=== PATIENT | female | born 1970 | race Caucasian/White ===

== ENCOUNTER 2016-10-27 11:32 | Emergency (ER) | payer OTHER ==
[~2016-10-27] VITALS: Ht 175.3 cm; Wt 77.0 kg
[~2016-10-27 11:32] MED LIST: ACET325T33 PO; CIPR500T4 PO; DIAZ-90 PO; FAMO20TA18 PO; HYDR-3498 PO; METR500T PO; OMEP20CA16 PO; PERCOCET PO; PRED20TA PO
[2016-10-27 11:48] VITALS: Ht 175.3 cm; Wt 77.0 kg
[2016-10-27] MEDS ORDERED: GUAI-637 PO (14:46)
[2016-10-27] MEDS ORDERED: IBUP-1542 PO (14:46)
[2016-10-27] MEDS ORDERED: CETI10CA PO (14:48)
[2016-10-27 15:06] VITALS: BP 126/78; PULSE 76; RESP 17; TEMP 98.1
--- NOTE | 2016-10-29 23:05 | ERD ---
ER Documentation Chief Complaint Date/Time DATE: 10/29/16 TIME: 22:45 Chief Complaint RIGHT EAR PAIN, HEADACHE X3 DAYS HPI Patient is a 46 year old female who presents to the emergency department with right ear pain and headache x3 days. Patient states that her ear pain is intermittent in nature. Patient describes the pain to be throbbing and "full." Patient denies drainage. Patient reports tactile fevers. Patient reports a dry cough. Patient report clear rhinorrhea and a sore throat. Patient denies any drooling, trismus and hyperextension of the neck. Patient denies any neck pain or stiffness. Patient states that she has a mild headache and generalized body aches. Patient denies any weight loss, nausea, vomiting, diarrhea, or changes in appetite. Patient recently returned from a trip from [facility]. Patient also complaining of discolorations to her legs. Patient states that they were initially red circular bumps only on her legs and now have left dark brown discolorations. ROS All systems reviewed and are negative except as per history of present illness. Medications Home Meds Active Scripts Cetirizine Hcl* (Zyrtec*) 10 Mg Capsule, 10 MG PO DAILY, #20 TAB.CHEW Prov:MAVIS MONTOYA PA-C 10/27/16 Ibuprofen* (Motrin*) 600 Mg Tab, 600 MG PO Q6, #30 TAB Prov:MAVIS MONTOYA PA-C 10/27/16 Guaifenesin* (Robitussin*) 100 Mg/5 Ml Syrup, 100 MG PO Q4H Y for COUGH, #1 BOTTLE Prov:MAVIS MONTOYA PA-C 10/27/16 Diazepam* (Valium*) 5 Mg Tablet, 5 MG PO Q8 for MUSCLE SPASMS, #10 TAB Prov:ANNA JONES PA-C 05/01/16 Omeprazole* (Omeprazole*) 20 Mg Capsule.dr, 20 MG PO DAILY, #10 Prov:ANNA JONES PA-C 05/01/16 Acetaminophen* (Tylenol*) 325 Mg Tablet, 2 TAB PO Q6 Y for PAIN AND OR ELEVATED TEMP, #20 TAB Prov:ANNA JONES PA-C 05/01/16 Prednisone* (Prednisone*) 20 Mg Tab, 40 MG PO DAILY for 5 Days, TAB Prov:MARCI GORDONKayleigh CARO 12/07/15 Hydrocodone Bit-Acetaminophen* ([place]*) 5-325 Mg Tab, 1 TAB PO Q6 Y for PAIN, # 10 TAB Prov:GODWINHEMANT VANIA 11/30/15 Metronidazole* (Flagyl*) 500 Mg Tablet, 500 MG PO TID for 7 Days, TAB Prov:GODWINHEMANT CARO 11/30/15 Ciprofloxacin Hcl* (Ciprofloxacin Hcl*) 500 Mg Tablet, 500 MG PO BID for 7 Days , TAB Prov:GODWINHEMANT VANIA 11/30/15 Ciprofloxacin Hcl* (Ciprofloxacin Hcl*) 500 Mg Tablet, 500 MG PO BID, #10 TAB Prov:DOUGLAS GALARZA MD 03/16/15 Oxycodone Hcl/Acetaminophen (Percocet) 1 Tab Tab, 2 TAB PO Q4H Y for PAIN 4-6, # 50 TAB Prov:JEANNETTE MEDEIROS 11/25/14 Reported Medications Famotidine* (Famotidine*) 20 Mg Tablet, 20 MG PO DAILY, TAB 11/21/14 Allergies Allergies: Coded Allergies: No Known Drug Allergies (Verified Allergy, Unknown, 03/12/15) PMhx/Soc Medical and Surgical Hx: pt denies Medical Hx History of Surgery: Yes (CHOLECYSTECTOMY, LIVER SURGERY) Anesthesia Reaction: No Hx Neurological Disorder: No Hx Respiratory Disorders: No Hx Cardiac Disorders: No Hx Psychiatric Problems: No Hx Miscellaneous Medical Probl: Yes (UTI) Hx Alcohol Use: No Hx Substance Use: No Hx Tobacco Use: Yes (CIGS OCCASSIONALLY) Smoking Status: Light tobacco smoker Physical Exam Vitals Vital Signs Date Time Temp Pulse Resp B/P Pulse Ox O2 Delivery O2 Flow Rate FiO2 10/27/16 15:06 98.1 76 17 126/78 98 Room Air 10/27/16 11:48 98.1 80 17 99/67 98 Physical Exam GENERAL: Well-developed, well-nourished female. Appears in no acute distress. HEAD: Normocephalic, atraumatic. No deformities or ecchymosis. EYE: Pupils equal, round, and reactive to light. EOMs intact. No conjunctival erythema. No scleral icterus. No eye discharge. ENT: External ear without any masses or tenderness. Auditory canals clear bilaterally. TM visualized bilaterally, non-erythematous, non-bulging. Nasal mucosa pink with no discharge. Oropharynx is pink without any tonsillar erythema or exudates. No uvula deviation. No kissing tonsils. NECK: Supple. Normal ROM of the neck. No neck stiffness. No meningismus. LUNG: Clear to auscultation bilaterally. No rhonchi, wheezing, rales or coarse breath sounds. HEART: Regular rate and rhythm. No murmurs, rubs or gallops. ABDOMEN: No scars, ecchymosis or rashes noted. Soft, nontender, and nondistended. Positive bowel sounds in all four quadrants.~No rebound tenderness , no guarding. No CVA tenderness. BACK: No midline tenderness. EXTREMITIES: Equal pulses bilaterally. No peripheral clubbing, cyanosis or edema. No unilateral leg swelling. NEUROLOGIC: Alert and oriented to person, place and time. Moving all four extremities. 5/5 strength in all extremities. Normal speech. Steady gait. (-) Brudzinski sign. (-) Kernigs sign. SKIN: Normal color. Warm and dry. Macular, circular, light brown discolorations noted to patient's lower legs only. Dime to quarter sized, varies in size. Non- tender to palpation. No diffuse erythematous, macular or papular lesions/ rashes noted on patient's body. No desquamation of foot soles or palms. Procedures/MDM MEDICAL DECISION MAKING: This is a 46 year old female who presents with numerous symptoms including ear pain, throat pain, headaches, generalized body aches and intermittent fevers after returning from [facility] 3 days ago. Vital signs were reviewed. Patient was afebrile. Patient was not hypoxic. ENT exam was normal. Lung exam was normal. Abdominal exam was normal. Skin exam revealed macular, circular discolorations randomly spaced on patient's lower legs only. Lesions are dime to quarter sized. No diffuse erythematous lesions/ rashes noted on the patient's entire body. Given these findings, the patients presentation is most consistent with influenza and viral URI. I have a much lower clinical concern for bacterial infections including pneumonia, meningitis, sinusitis, otitis externa, acute otitis media, strep pharyngitis, epiglottitis or peritonsillar abscess. Patient' s rash appears to most resemble resolving mosquito/insect bites. Low suspicion for allergic dermatitis, necrotizing fasciitis, Hosea-Paulino syndrome, toxic epidural necrolysis, abscess, cellulitis, herpes zoster. Low suspicion for Typhoid, Dengue Fever, Yellow fever, Chikungunya. PRESCRIPTIONS: Zyrtec, Robitussin, Ibuprofen DISCHARGE: At this time, patient is stable for discharge and outpatient management. Supportive therapies such as OTC throat lozenges, salt water gurgles, popsicles and jello discussed. I have instructed the patient to follow-up with his/her primary care physician in 1-2 days. If patient's rash persists, patient may need to see a corporate sales representative. I have instructed the patient to promptly return to the ER for any new or worsening symptoms including increased pain, swelling, fever, nausea, vomiting, weakness or difficulty breathing. The patient and/or family expressed understanding of and agreement with this plan. All questions were answered. Home care instructions were provided Departure Diagnosis: Primary Impression: Influenza-like symptoms Condition: Stable Patient Instructions: Influenza (Adult) [facility] YOU HAVE RECEIVED A MEDICAL SCREENING EXAM AND THE RESULTS INDICATE THAT YOU DO NOT HAVE A CONDITION THAT REQUIRES URGENT TREATMENT IN THE EMERGENCY DEPARTMENT. FURTHER EVALUATION AND TREATMENT OF YOUR CONDITION CAN WAIT UNTIL YOU ARE SEEN IN YOUR DOCTORS OFFICE WITHIN THE NEXT 1-2 DAYS. IT IS YOUR RESPONSIBILITY TO MAKE AN APPOINTMENT FOR FOLOW-UP CARE. IF YOU HAVE A PRIMARY DOCTOR --you should call your primary doctor and schedule an appointment IF YOU DO NOT HAVE A PRIMARY DOCTOR YOU CAN CALL OUR PHYSICIAN REFERRAL HOTLINE AT IF YOU CAN NOT AFFORD TO SEE A PHYSICIAN YOU CAN CHOSE FROM THE FOLLOWING [facility] [address] [facility]. [facility] [address] [facility] [place] [address] [facility] [address] [facility] [address] [facility]. [facility]. [address] [facility]. [facility] YOU HAVE RECEIVED A MEDICAL SCREENING EXAM AND THE RESULTS INDICATE THAT YOU DO NOT HAVE A CONDITION THAT REQUIRES URGENT TREATMENT IN THE EMERGENCY DEPARTMENT. FURTHER EVALUATION AND TREATMENT OF YOUR CONDITION CAN WAIT UNTIL YOU ARE SEEN IN YOUR DOCTORS OFFICE WITHIN THE NEXT 1-2 DAYS. IT IS YOUR RESPONSIBILITY TO MAKE AN APPOINTMENT FOR FOLOW-UP CARE. IF YOU HAVE A PRIMARY DOCTOR --you should call your primary doctor and schedule and appointment IF YOU DO NOT HAVE A PRIMARY DOCTOR YOU CAN CALL OUR PHYSICIAN REFERRAL HOTLINE AT . IF YOU CAN NOT AFFORD TO SEE A PHYSICIAN YOU CAN CHOSE FROM THE FOLLOWING [facility] INSTITUTIONS: [facility] [address] [place] [address] [facility] [address] [place] [address] [facility] + [facility] [address] [place] [address] Additional Instructions: At this time, patient's presentation is most consistent with viral URI versus influenza. Symptomatic treatment discussed. Take medications as needed. OTC throat lozenges, popsicles, Jell-O and humidifier use advised. Skin lesions continue, patient may need to see a corporate sales representative for further management. Call your primary care doctor TOMORROW for an appointment during the next 1-2 days.See the doctor sooner or return here if your condition worsens before your appointment time. MAVIS MONTOYA PA-C Oct 29, 2016 23:00
== END 2016-10-27 15:06 | disposition home or self-care (01) ==
LOC: FTE 11:32
DX: H92.01 Otalgia, right ear (principal); R51 Headache; F17.210 Nicotine dependence, cigarettes, uncomplicated
CPT/HCPCS: 99283

== ENCOUNTER 2017-06-23 12:10 | Emergency (ER) | payer OTHER ==
[~2017-06-23] VITALS: Ht 170.2 cm; Wt 76.5 kg
[~2017-06-23 12:10] MED LIST changes: +CETI10CA PO; +GUAI-637 PO; +IBUP-1542 PO
[2017-06-23 12:47] VITALS: Ht 170.2 cm; Wt 76.5 kg
[2017-06-23] MEDS ORDERED: HYDROCODONE/APAP (5/325) TAB PO ONE (15:30)
[2017-06-23 15:46] LABS: BASOPHIL # 0.1 10^3/ul (0.0-0.1); BASOPHILS % 1.1 % (0.0-2.0); EOSINOPHILS # 0.6 10^3/ul (0.0-0.5); EOSINOPHILS % 7.5 % (0.0-7.0); HEMATOCRIT 39.3 % (37.0-47.0); HEMOGLOBIN 13.2 g/dl (12.0-16.0); LYMPHOCYTES # 2.1 10^3/ul (0.8-2.9); MEAN CORPUSCULAR HEMOGLOBIN 29.4 pg (29.0-33.0); MEAN CORPUSCULAR HGB CONC 33.6 g/dl (32.0-37.0); MEAN CORPUSCULAR VOLUME 87.5 fl (82.0-101.0); MEAN PLATELET VOLUME 9.4 fl (7.4-10.4); MONOCYTE # 0.5 10^3/ul (0.3-0.9); NEUTROPHIL # 4.3 10^3/ul (1.6-7.5); NEUTROPHILS % 56.3 % (39.0-77.0); PLATELET COUNT 266 10^3/UL (140-415); RED BLOOD COUNT 4.49 10^6/ul (4.20-5.40); RED CELL DISTRIBUTION WIDTH 14.7 % (11.5-14.5); WHITE BLOOD COUNT 7.6 10^3/ul (4.8-10.8)
[2017-06-23 16:06] LABS: ALBUMIN 4.7 g/dl (3.3-4.9); ALBUMIN/GLOBULIN RATIO 1.56; BILIRUBIN,INDIRECT 0.1 mg/dl (0-1.1); BILIRUBIN,TOTAL 0.1 mg/dl (0.2-1.3); CREATININE 0.64 mg/dl (0.44-1.00); POTASSIUM 4.2 mmol/L (3.5-5.1); TOTAL PROTEIN 7.7 g/dl (6.1-8.1)
[2017-06-23 16:06] LABS: ADD UMIC NO; UR ASCORBIC ACID NEGATIVE (NEGATIVE); UR BILIRUBIN (Dip) NEGATIVE (NEGATIVE); UR BLOOD (Dip) NEGATIVE (NEGATIVE); UR CLARITY CLEAR (CLEAR); UR COLOR YELLOW (YELLOW); UR GLUCOSE (Dip) NEGATIVE (NEGATIVE); UR KETONES (Dip) NEGATIVE (NEGATIVE); UR LEUKOCYTE ESTERASE (Dip) NEGATIVE Leu/ul (NEGATIVE); UR NITRITE (Dip) NEGATIVE (NEGATIVE); UR SPECIFIC GRAVITY (Dip) 1.015 (1.003-1.030); UR TOTAL PROTEIN (Dip) NEGATIVE (NEGATIVE); UR UROBILINOGEN (Dip) NEGATIVE (NEGATIVE)
--- NOTE | 2017-06-23 16:32 | RADRPT ---
PROCEDURE: CT abdomen and pelvis without contrast. CLINICAL INDICATION: Left lower quadrant pain TECHNIQUE: CT scan of the abdomen and pelvis without contrast was performed . The patient was sca nned without intravenous contrast. 3-D coronal reformatted images were obtained from the axial sour ce images. CTDI 14.11 mGy DLP = 75 9.28 mGy-cm One or more of the following dose reduction techniques were used: Automated exposure control Adjustment of the mA and / or kV according to patient size Use of iterative reconstruction technique. COMPARISON: CT of the abdomen and pelvis dated November 29, 2015 FINDINGS: CT abdomen/pelvis: There is mild bibasilar atelectasis otherwise the lung bases are clear. There is a 7 mm nonspecific hypodense lesion in the right lobe of the liver, too small to characteri ze. The patient is status post cholecystectomy. There is no intra or extra panic biliary ductal dila tation. The spleen, adrenal glands, and pancreas appear normal. The kidneys are normal without renal or ureteral calculus. There is no hydronephrosis. There are very faint vascular calcifications. There is no lymphadenopathy. The large and small bowel is normal in course and caliber, without evidence of obstruction. The appe ndix appears normal. There is diverticulosis without evidence of acute diverticulitis. There is stoo l throughout the colon. There are bilateral essure devices present. The uterus and adnexa are otherwise grossly unremarkable . There is no free fluid. There is no acute osseous abnormality. There is no suspicious osseous lesion. There is mild sclerosi s along the inferior aspect of the sacroiliac joints bilaterally, unchanged from prior, possibly deg enerative or reflecting chronic inflammatory changes. IMPRESSION: 1. Diverticulosis without evidence of acute diverticulitis. 2. Normal appendix. 3. No renal or ureteral calculi. No hydronephrosis. 4. Previous cholecystectomy. RPTAT: UU .Hosea Orozco MD, Date Time Electronically viewed and signed by .Hosea Orozco MD, MD on 06/23/2017 16:32 .K/
--- NOTE | 2017-06-23 16:39 | RADRPT ---
PROCEDURE: Ultrasound pelvis. CLINICAL INDICATION: Pelvic pain. TECHNIQUE: Sonographic evaluation of the pelvis was performed using transabdominal and endovaginal views. COMPARISON: None. FINDINGS: Mildly heterogeneous uterus without discrete uterine mass or fibroid. Dominant follicle within left ovary measuring up to 1.7 cm. There are normal-appearing follicles mata ntified within the right ovary. No free fluid or fluid collection. MEASUREMENTS: Uterus: 6.3 x 4.2 x 4.7 cm. Endometrium: 0.5 cm Right ovary: 1.9 x 1.3 x 1.3 cm Left ovary: 2.3 x 1.8 x 2.1 cm IMPRESSION: Unremarkable sonographic evaluation of the pelvis. RPTAT: EE .Xander Valdez MD, MD Date Time Electronically viewed and signed by .Xander Valdez MD, on 06/23/2017 16:44 .C/
[2017-06-23] MEDS ORDERED: TRAM50TA2 PO (16:50)
--- NOTE | 2017-06-23 17:00 | ERD ---
ER Documentation Chief Complaint Chief Complaint left pelvic pain radiating to back HPI 47-year-old female presents with left-sided pelvic pain that radiates to her left lower back that started 2 days ago. She describes it as sharp, achy and diffuse, mild to moderate. She has not had any difficulty with urinating or UTI symptoms. She denies vaginal bleeding. She denies fevers or chills, vomiting or diarrhea. ROS All systems reviewed and are negative except as per history of present illness. Medications Home Meds Active Scripts Tramadol HCl (Tramadol HCl) 50 Mg Tablet, 50 MG PO Q4 Y for PAIN, #15 TAB Prov:FARHAN NOVA PA-C 06/23/17 Cetirizine Hcl* (Zyrtec*) 10 Mg Capsule, 10 MG PO DAILY, #20 TAB.CHEW Prov:MAVIS MONTOYA PA-C 10/27/16 Ibuprofen* (Motrin*) 600 Mg Tab, 600 MG PO Q6, #30 TAB Prov:MAVIS MONTOYA PA-C 10/27/16 Guaifenesin* (Robitussin*) 100 Mg/5 Ml Syrup, 100 MG PO Q4H Y for COUGH, #1 BOTTLE Prov:MAVIS MONTOYA PA-C 10/27/16 Diazepam* (Valium*) 5 Mg Tablet, 5 MG PO Q8 for MUSCLE SPASMS, #10 TAB Prov:ANNA JONES PA-C 05/01/16 Omeprazole* (Omeprazole*) 20 Mg Capsule.dr, 20 MG PO DAILY, #10 Prov:ANNA JONES PA-C 05/01/16 Acetaminophen* (Tylenol*) 325 Mg Tablet, 2 TAB PO Q6 Y for PAIN AND OR ELEVATED TEMP, #20 TAB Prov:ANNA JONES PA-C 05/01/16 Prednisone* (Prednisone*) 20 Mg Tab, 40 MG PO DAILY for 5 Days, TAB Prov:MARCI GORDON PA-C 12/07/15 Hydrocodone Bit-Acetaminophen* ([place]*) 5-325 Mg Tab, 1 TAB PO Q6 Y for PAIN, # 10 TAB Prov:HEMANT CONNELLY PA-C 11/30/15 Metronidazole* (Flagyl*) 500 Mg Tablet, 500 MG PO TID for 7 Days, TAB Prov:HEMANT CONNELLY PA-C 11/30/15 Ciprofloxacin Hcl* (Ciprofloxacin Hcl*) 500 Mg Tablet, 500 MG PO BID for 7 Days , TAB Prov:HEMANT CONNELLY PA-C 11/30/15 Ciprofloxacin Hcl* (Ciprofloxacin Hcl*) 500 Mg Tablet, 500 MG PO BID, #10 TAB Prov:DOUGLAS GALARZA MD 03/16/15 Oxycodone Hcl/Acetaminophen (Percocet) 1 Tab Tab, 2 TAB PO Q4H Y for PAIN 4-6, # 50 TAB Prov:JEANNETTE MEDEIROS 11/25/14 Reported Medications Famotidine* (Famotidine*) 20 Mg Tablet, 20 MG PO DAILY, TAB 11/21/14 Allergies Allergies: Coded Allergies: No Known Drug Allergies (Verified Allergy, Unknown, 03/12/15) PMhx/Soc History of Surgery: Yes (CHOLECYSTECTOMY, LIVER SURGERY) Anesthesia Reaction: No Hx Neurological Disorder: No Hx Respiratory Disorders: No Hx Cardiac Disorders: No Hx Psychiatric Problems: No Hx Miscellaneous Medical Probl: Yes (UTI) Hx Alcohol Use: No Hx Substance Use: No Hx Tobacco Use: Yes (CIGS OCCASSIONALLY) Smoking Status: Current some day smoker Physical Exam Vitals Vital Signs Date Time Temp Pulse Resp B/P Pulse Ox O2 Delivery O2 Flow Rate FiO2 06/23/17 12:47 98.4 7 18 113/60 99 Physical Exam General: Well-developed, well-nourished. The patient appears in no acute distress. HEENT: Head is normocephalic, atraumatic. No scleral icterus. Neck: Supple. Nontender. Lungs: Clear to auscultation. Normal air movement. Heart: Regular rate and rhythm. S1 and S2 are normal. No murmurs, gallops, or rubs. Abdomen: Soft, tender in the left lower pelvic region, there is no rebound pain , no McBurney's tenderness nondistended. Bowel sounds are normoactive. Surgical scar from previous intervention from trauma to her liver., Surgical scar from cholecystectomy. No CVA tenderness. Extremities: No clubbing or cyanosis. Normal pulses. Moving extremities x 4. No weakness. Neurologic: Alert and oriented 3. No focal deficits. Skin: Normal turgor. No rash or lesions. Result Diagram: 06/23/17 1531 06/23/17 1531 Results 24 hrs Laboratory Tests Test 06/23/17 15:31 06/23/17 15:37 White Blood Count 7.610^3/ul Red Blood Count 4.4910^6/ul Hemoglobin 13.2g/dl Hematocrit 39.3% Mean Corpuscular Volume 87.5fl Mean Corpuscular Hemoglobin 29.4pg Mean Corpuscular Hemoglobin Concent 33.6g/dl Red Cell Distribution Width 14.7% Platelet Count 44089^3/UL Mean Platelet Volume 9.4fl Neutrophils % 56.3% Lymphocytes % 28.0% Monocytes % 7.0% Eosinophils % 7.5% Basophils % 1.1% Nucleated Red Blood Cells % 0.0/100WBC Neutrophils # 4.310^3/ul Lymphocytes # 2.110^3/ul Monocytes # 0.510^3/ul Eosinophils # 0.610^3/ul Basophils # 0.110^3/ul Nucleated Red Blood Cells # 0.010^3/ul Sodium Level 142mmol/L Potassium Level 4.2mmol/L Chloride Level 106mmol/L Carbon Dioxide Level 25mmol/L Anion Gap 15 Blood Urea Nitrogen 10mg/dl Creatinine 0.64mg/dl Glucose Level 89mg/dl Calcium Level 9.0mg/dl Total Bilirubin 0.1mg/dl Direct Bilirubin 0.00mg/dl Indirect Bilirubin 0.1mg/dl Aspartate Amino Transf (AST/SGOT) 23IU/L Alanine Aminotransferase (ALT/SGPT) 30IU/L Alkaline Phosphatase 99IU/L Total Protein 7.7g/dl Albumin 4.7g/dl Globulin 3.00g/dl Albumin/Globulin Ratio 1.56 Lipase 128U/L Serum HCG, Qualitative NEGATIVE Urine Color YELLOW Urine Clarity CLEAR Urine pH 5.0 Urine Specific [place] 1.015 Urine Ketones NEGATIVEmg/dL Urine Nitrite NEGATIVEmg/dL Urine Bilirubin NEGATIVEmg/dL Urine Urobilinogen NEGATIVEmg/dL Urine Leukocyte Esterase NEGATIVELeu/ul Urine Hemoglobin NEGATIVEmg/dL Urine Glucose NEGATIVEmg/dL Urine Total Protein NEGATIVEmg/dl Current Medications Medications (Trade) Dose Ordered Sig/Nicki Route PRN Reason Start Time Stop Time Status Last Admin Dose Admin Acetaminophen/ Hydrocodone Bitart ([place] (5/325)) 1 tab ONCE ONCE PO 06/23/17 15:30 06/23/17 15:31 DC 06/23/17 15:53 DIAGNOSTIC IMAGING REPORT Patient: ETSSY SOTO : 1970 Age: 47 Sex: F MR #: [id number] DOS: 06/23/17 1522 Ordering MD: FARHAN NOVA PA-C Location: [facility] Room/Bed: PROCEDURE: CT abdomen and pelvis without contrast. CLINICAL INDICATION: Left lower quadrant pain TECHNIQUE: CT scan of the abdomen and pelvis without contrast was performed . The patient was scanned without intravenous contrast. 3-D coronal reformatted images were obtained from the axial source images. CTDI 14.11 mGy DLP = 75 9.28 mGy-cm One or more of the following dose reduction techniques were used: Automated exposure control Adjustment of the mA and / or kV according to patient size Use of iterative reconstruction technique. COMPARISON: CT of the abdomen and pelvis dated November 29, 2015 FINDINGS: CT abdomen/pelvis: There is mild bibasilar atelectasis otherwise the lung bases are clear. There is a 7 mm nonspecific hypodense lesion in the right lobe of the liver, too small to characterize. The patient is status post cholecystectomy. There is no intra or extra panic biliary ductal dilatation. The spleen, adrenal glands, and pancreas appear normal. The kidneys are normal without renal or ureteral calculus. There is no hydronephrosis. There are very faint vascular calcifications. There is no lymphadenopathy. The large and small bowel is normal in course and caliber, without evidence of obstruction. The appendix appears normal. There is diverticulosis without evidence of acute diverticulitis. There is stool throughout the colon. There are bilateral essure devices present. The uterus and adnexa are otherwise grossly unremarkable. There is no free fluid. There is no acute osseous abnormality. There is no suspicious osseous lesion. There is mild sclerosis along the inferior aspect of the sacroiliac joints bilaterally, unchanged from prior, possibly degenerative or reflecting chronic inflammatory changes. IMPRESSION: 1. Diverticulosis without evidence of acute diverticulitis. 2. Normal appendix. 3. No renal or ureteral calculi. No hydronephrosis. 4. Previous cholecystectomy. RPTAT: UU .Hosea Orozco MD, MD Date Time Electronically viewed and signed by .Hosea Orozco MD, MD on 06/23/2017 16: 32 .K/ CC: FARHAN NOVA PA-C DIAGNOSTIC IMAGING REPORT Patient: TESSY SOTO : 1970 Age: 47 Sex: F MR #: [id number] DOS: 06/23/17 1519 Ordering MD: FARHAN NOVA PA-C Location: [facility] Room/Bed: PROCEDURE: Ultrasound pelvis. CLINICAL INDICATION: Pelvic pain. TECHNIQUE: Sonographic evaluation of the pelvis was performed using transabdominal and endovaginal views. COMPARISON: None. FINDINGS: Mildly heterogeneous uterus without discrete uterine mass or fibroid. Dominant follicle within left ovary measuring up to 1.7 cm. There are normal- appearing follicles identified within the right ovary. No free fluid or fluid collection. MEASUREMENTS: Uterus: 6.3 x 4.2 x 4.7 cm. Endometrium: 0.5 cm Right ovary: 1.9 x 1.3 x 1.3 cm Left ovary: 2.3 x 1.8 x 2.1 cm IMPRESSION: Unremarkable sonographic evaluation of the pelvis. RPTAT: EE .Xander Valdez MD, MD Date Time Electronically viewed and signed by .Xander Valdez MD, MD on 06/23/2017 16:44 .C/ CC: FARHAN NOVA PA-C Procedures/MDM 47-year-old female presents to the emergency room left-sided pelvic pain, there is prominent follicles seen on the left ovary, without evidence of a mass, abscess, torsion. CT was also negative for diverticulitis, but evidence of diverticulosis. Urine was reviewed, no infection, and all unremarkable. She will be given tramadol for pain control, her pain is most likely due to follicular changes of the ovary, there are no acute or surgical abdominal or pelvic processes at this time and will be discharged home with a short course of tramadol for pain control. Departure Diagnosis: Primary Impression: Acute pain in female pelvis Condition: Good Patient Instructions: Pelvic Pain, Unknown Cause Additional Instructions: Llame al doctor MAANA y andrzej berna KAYA PARA DENTRO DE 1-2 HA.Dgale a la secretaria que nosotros le instruimos hacer esta kaya.Avise o llame si frazier condicin se empeora antes de la kaya. Regresa aqui si peor o no mejor. FARHAN NOVA PA-C Jun 23, 2017 17:00
[2017-06-23 17:14] VITALS: BP 115/62; PULSE 77; RESP 18; TEMP 98.4
== END 2017-06-23 17:15 | disposition home or self-care (01) ==
LOC: FTE 12:10
DX: R10.2 Pelvic and perineal pain (principal); F17.210 Nicotine dependence, cigarettes, uncomplicated
CPT/HCPCS: 36415; 74176; 76830; 76856; 80053; 81003; 83690; 84703; 85025; Z7502; Z7610

== ENCOUNTER 2017-11-12 08:37 | Emergency (ER) | END 2017-11-12 13:56 | disposition home or self-care (01) ==

== ENCOUNTER 2018-05-20 08:32 | Emergency (ER) | END 2018-05-20 10:12 | disposition home or self-care (01) ==